=== PATIENT | female | born 1980 | race African-American/Black ===

== ENCOUNTER 2020-02-03 00:55 | Emergency (ER) | payer SELFPAY ==
[~2020-02-03] VITALS: Ht 152.4 cm; Wt 72.0 kg
[~2020-02-03 00:55] MED LIST: ALBU2.5V8 INH; CETI10TA24 PO; CYCL10TA2 PO; FLUT16SP2 NS; FLUT1DIS3 IH; HYDR-2765 PO; OMEP40CA45 PO; PREG75CA PO; PREMPRO 0.3 MG1 EACH PO; TRAM50TA PO; VENTOLIN HFA18 GM IH
[2020-02-03] MEDS ORDERED: MORPHINE SULFATE 2 MG/ML VIAL. IM ONE (03:30)
[2020-02-03] MEDS: KETOROLAC 60 MG/2 ML VIAL. IM ONE (03:38)
[2020-02-03] MEDS: ORPHENADRINE CITRATE 60 MG/2 ML VIAL. IM ONE (03:38)
--- NOTE | 2020-02-03 03:39 | PHYS DOC ---
Past Medical History Past Medical History: Asthma, Hypertension Past Surgical History: , Tonsillectomy, Other Additional Past Surgical Histo: spinal Smoking Status: Never Smoker Alcohol Use: None Drug Use: None Adult General Chief Complaint Chief Complaint: CHEST PAIN [facility] HPI Patient is a 39 year old female presents with the chief complaint of back pain. Triage complaint of chest pain. When I examined the patient she complained of left upper back pain. She denies any injury. States pain suddenly started. Pain is worse with ROM-- improved with rest. States she took hydrocodone and flexeril with no relief. On exam-- no mid-line C-T-L tenderness to palpation. Review of Systems Review of Systems Constitutional: Denies fever or chills [] Eyes: Denies change in visual acuity, redness, or eye pain [] HENT: Denies nasal congestion or sore throat [] Respiratory: Denies cough or shortness of breath [] Cardiovascular: No additional information not addressed in HPI [] GI: Denies abdominal pain, nausea, vomiting, bloody stools or diarrhea [] : Denies dysuria or hematuria [] Musculoskeletal:positive back pain Integument: Denies rash or skin lesions [] Neurologic: Denies headache, focal weakness or sensory changes [] Endocrine: Denies polyuria or polydipsia [] All other systems were reviewed and found to be within normal limits, except as documented in this note. Current Medications Current Medications Current Medications Medications (Trade) Dose Ordered Sig/Scooter Start Time Stop Time Status Last Admin Dose Admin Diphenhydramine HCl (Benadryl) 25 mg 1X ONCE 02/03/20 05:00 02/03/20 05:01 Fentanyl Citrate (Fentanyl 2ml Vial) 50 mcg 1X ONCE 02/03/20 04:00 02/03/20 04:12 DC 02/03/20 04:26 50 MCG Ketorolac Tromethamine (Toradol Im) 60 mg 1X ONCE 02/03/20 03:30 02/03/20 03:31 DC 02/03/20 03:38 60 MG Morphine Sulfate (Morphine Sulfate) 2 mg 1X ONCE 02/03/20 03:30 02/03/20 03:40 DC Orphenadrine Citrate (Norflex) 60 mg 1X ONCE 02/03/20 03:30 02/03/20 03:31 DC 02/03/20 03:38 60 MG Allergies Allergies Allergies Coded Allergies Type Severity Reaction Last Updated Verified aspirin Allergy Intermediate 10/09/15 Yes codeine Allergy Intermediate 01/26/15 Yes hydrocodone Allergy Intermediate Hives 01/26/15 Yes latex Allergy Intermediate 01/26/15 Yes morphine Allergy Intermediate 01/26/15 Yes oxycodone Allergy Intermediate Hives 01/26/15 Yes Physical Exam Physical Exam Constitutional: Well developed, well nourished, no acute distress, non-toxic appearance. [] HENT: Normocephalic, atraumatic, bilateral external ears normal, oropharynx m oist, no oral exudates, nose normal. [] Eyes: PERRLA, EOMI, conjunctiva normal, no discharge. [] Neck: Normal range of motion, no tenderness, supple, no stridor. [] Cardiovascular:Heart rate regular rhythm, no murmur [] Lungs & Thorax: Bilateral breath sounds clear to auscultation [] Abdomen: Bowel sounds normal, soft, no tenderness, no masses, no pulsatile masses. [] Skin: Warm, dry, no erythema, no rash. [] Back: tenderness to palpation left paraspinal thoracic region, no CVA tend erness. No midline c t l spine tenderess step offs or deformities[] Extremities: No tenderness, no cyanosis, no clubbing, ROM intact, no edema. [] Neurologic: Alert and oriented X 3, normal motor function, normal sensory function, no focal deficits noted. [] Psychologic: Affect normal, judgement normal, mood normal. [] Current Patient Data Vital Signs Vital Signs Date Time Temp Pulse Resp B/P (MAP) Pulse Ox O2 Delivery O2 Flow Rate FiO2 02/03/20 04:26 16 98 Room Air 02/03/20 01:02 98.0 88 119/86 (97) 98.0 EKG EKG [] Radiology/Procedures Radiology/Procedures [] Course & Med Decision Making Course & Med Decision Making Pertinent Labs and Imaging studies reviewed. (See chart for details) [] Dragon Disclaimer Dragon Disclaimer This electronic medical record was generated, in whole or in part, using a voice recognition dictation system. Departure Departure Impression: Primary Impression: Back pain Disposition: 01 HOME, SELF-CARE Condition: STABLE Referrals: HOMERO VU MD (PCP) Patient Instructions: Back Pain, Adult Scripts Diazepam (VALIUM) 5 Mg Tablet 5 MG PO BID, #14 TAB Prov: CAMERON LORENZ DO 02/03/20 CAMERON LORENZ DO Feb 03, 2020 03:39
[2020-02-03] MEDS: fentaNYL PF VIAL 100 MCG/2 ML VIAL IM ONE (04:26)
[2020-02-03] MEDS ORDERED: DIAZ5TAB PO (04:55)
[2020-02-03] MEDS: MORPHINE SULFATE 2 MG/ML VIAL. IM ONE (05:13)
[2020-02-03] MEDS: diphenhydrAMINE HCL 25 MG CAPSULE PO ONE (05:13)
[2020-02-03 05:30] VITALS: BP 103/68
--- NOTE | 2020-02-03 10:08 | EKG ---
[facility] [address] [place] [address] Test Date: 2020-02-03 Test Time: 01:00:41 Pat Name: NIRAV MENON Department: Room: Gender: F Head Of Sales: : 1980 Requested By: CAMERON LORENZ Order Number: [id number] Reading MD: Measurements Intervals [place] Rate: 86 P: 60 MD: 146 QRS: -14 QRSD: 80 T: 47 QT: 354 QTc: 427 Interpretive Statements SINUS RHYTHM LEFT ATRIAL ABNORMALITY LEFTWARD AXIS ABNORMAL ECG RI6.01 No previous ECG available for comparison
== END 2020-02-03 05:31 | disposition home or self-care (01) ==
LOC: ER 00:55
DX: M54.6 Pain in thoracic spine (principal); R07.89 Other chest pain; I10 Essential (primary) hypertension; J45.909 Unspecified asthma, uncomplicated; Z88.5 Allergy status to narcotic agent; Z88.6 Allergy status to analgesic agent; Z91.040 Latex allergy status
CPT/HCPCS: 93005; 96372; 99285; J1885; J2270; J2360; J3010; Q0163

== ENCOUNTER 2021-12-09 00:55 | Emergency (ER) | payer BC ==
[~2021-12-09] VITALS: Ht 152.4 cm; Wt 75.0 kg
[~2021-12-09 00:55] MED LIST changes: -CETI10TA24 PO; +CETI10TA74 PO; +CYCL10TA19 PO; -CYCL10TA2 PO; +DIAZ5TAB PO; -OMEP40CA45 PO; +OMEP40CA7 PO; +PREG-9 PO; -PREG75CA PO
[2021-12-09] MEDS ORDERED: TRAM50TA PO (02:10)
--- NOTE | 2021-12-09 02:11 | PHYS DOC ---
Past Medical History Past Medical History: Asthma, Hypertension Additional Past Medical Histor: back pain with tumor HX Past Surgical History: , Lumbar Laminectomy, Other Additional Past Surgical Histo: nasal, Smoking Status: Current Every Day Smoker Additional Information: trying to quit Alcohol Use: None Drug Use: None General Adult EDM: Chief Complaint: Knee pain HPI: HPI: Patient is a 41 year old female who presented to ER for evaluation of bilateral knee pain that she has been experiencing off and on for several months. Patient woke up this morning, she heard a pop in her knees, she woke up, stand on her feet 10 hours a day. At the end of her shift she has worsened knee pain so she came in here for evaluation. Patient denies any knee injury. Patient denies any leg pain,. no CALF Swelling, no chest pain. Review of Systems: Review of Systems: Constitutional: Denies fever or chills. [] Eyes: Denies change in visual acuity. [] HENT: Denies nasal congestion or sore throat. [] Respiratory: Denies cough or shortness of breath. [] Cardiovascular: Denies chest pain or edema. [] GI: Denies abdominal pain, nausea, vomiting, bloody stools or diarrhea. [] : Denies dysuria. [] Musculoskeletal: Denies back pain , positive for knees pain Integument: Denies rash. [] Neurologic: Denies headache, focal weakness or sensory changes. [] Endocrine: Denies polyuria or polydipsia. [] Lymphatic: Denies swollen glands. [] Psychiatric: Denies depression or anxiety. [] Heart Score: C/O Chest Pain: N/A Risk Factors: Risk Factors: DM, Current or recent (<one month) smoker, HTN, HLP, family history of CAD, obesity. Risk Scores: Score 0 - 3: 2.5% MACE over next 6 weeks - Discharge Home Score 4 - 6: 20.3% MACE over next 6 weeks - Admit for Clinical Observation Score 7 - 10: 72.7% MACE over next 6 weeks - Early Invasive Strategies Allergies: Allergies: Allergies Coded Allergies Type Severity Reaction Last Updated Verified aspirin Allergy Intermediate 12/09/21 Yes codeine Allergy Intermediate 12/09/21 Yes hydrocodone Allergy Intermediate Hives 12/09/21 Yes latex Allergy Intermediate 12/09/21 Yes morphine Allergy Intermediate 12/09/21 Yes oxycodone Allergy Intermediate Hives 12/09/21 Yes Physical Exam: PE: Constitutional: Well developed, well nourished, no acute distress, non-toxic appearance. [] HENT: Normocephalic, atraumatic, bilateral external ears normal, oropharynx moist, no oral exudates, nose normal. [] Eyes: PERRLA, EOMI, conjunctiva normal, no discharge. [] Neck: Normal range of motion, no tenderness, supple, no stridor. [] Cardiovascular:Heart rate regular rhythm, no murmur [] Lungs & Thorax: Bilateral breath sounds clear to auscultation [] Abdomen: Bowel sounds normal, soft, no tenderness, no masses, no pulsatile mas ses. [] Skin: Warm, dry, no erythema, no rash. [] Back: No tenderness, no CVA tenderness. [] Extremities: No tenderness, no cyanosis, no clubbing, ROM intact, no edema. [] There is no swelling in her knees Neurologic: Alert and oriented X 3, normal motor function, normal sensory function, no focal deficits noted. [] Psychologic: Affect normal, judgement normal, mood normal. [] Current Patient Data: Vital Signs: Vital Signs Date Time Temp Pulse Resp B/P (MAP) Pulse Ox O2 Delivery O2 Flow Rate FiO2 12/09/21 01:19 98.1 72 18 135/92 (106) 100 Room Air 98.1 EKG: EKG: [] Radiology/Procedures: Radiology/Procedures: [][facility] [address] [place], [place] [id number] IMAGING REPORT Signed PATIENT: NIRAV MENON ACCOUNT: [id number] : 1980 LOCATION: ER AGE: 41 SEX: F EXAM STATUS: REG ER ORD. PHYSICIAN: CARLOZ SALINAS DO REASON: bilateral knees pain PROCEDURE: KNEE BILAT 3V XR KNEE 3 VIEWS History: Reason: bilateral knees pain / Spl. Instructions: / History: Technique: 3 views bilateral knees Comparison: None. Findings: Right knee: No dislocation. No acute fracture. No significant knee joint effusion. Left knee: No dislocation. No acute fracture. No significant knee joint effusion. Impression: 1. No acute osseous abnormality. Electronically signed by: Varun Harry DO (12/09/2021 2:11 AM) [facility] DICTATED and SIGNED BY: VARUN HARRY DO DATE: 12/09/21 [id number] Course & Med Decision Making: Course & Med Decision Making Pertinent Labs and Imaging studies reviewed. (See chart for details) Patient is a 41-year-old female who presented to ER for evaluation of bilateral knee pain, atraumatic. Patient has been standing on her feet for 10 hours a day at her work, may contribute to her pain. X-rays of her knee did not show any fracture or dislocation but it does show some arthritic changes. Patient be discharged home with pain medication. Patient was recommended to follow-up with her family physician for outpatient evaluation with MRI of her knees. Patient was amenable to plan of care Dragon Disclaimer: Dragon Disclaimer: This electronic medical record was generated, in whole or in part, using a voice recognition dictation system. Departure Departure Impression: Primary Impression: DJD (degenerative joint disease) of knee Disposition: 01 HOME / SELF CARE / HOMELESS Condition: STABLE Referrals: OHMERO VU MD (PCP) fOLLOW UP WITH YOUR DOCTOR FOR OUTPATIENT EVALUATION WITH MRI of your knees. Patient Instructions: Arthritis, Degenerative-Brief Scripts Tramadol Hcl (TRAMADOL HCL) 50 Mg Tablet 50 MG PO Q6HRS PRN for PAIN, #20 TAB Prov: CARLOZ SALINAS DO 12/09/21 CARLOZ SALINAS DO Dec 09, 2021 02:11
[2021-12-09 02:19] VITALS: BP 132/85
== END 2021-12-09 02:20 | disposition home or self-care (01) ==
LOC: ER 00:55
DX: M25.561 Pain in right knee (principal); M25.562 Pain in left knee; J45.909 Unspecified asthma, uncomplicated; I10 Essential (primary) hypertension; F17.200 Nicotine dependence, unspecified, uncomplicated; Z88.5 Allergy status to narcotic agent; Z88.6 Allergy status to analgesic agent; Z91.040 Latex allergy status
CPT/HCPCS: 99283; 73562-50